=== PATIENT | female | born 2000 | race American Indian/Alaskan Native ===

== ENCOUNTER 2020-06-15 20:05 | Inpatient (IN) | payer MEDICAID ==
[2020-06-15] MEDS ORDERED: miSOPROStol 200 MCG TAB PR PRN (20:18)
[2020-06-15] MEDS ORDERED: CARBOPROST TROMETHAMINE 250 MCG/1 ML INJ IM PRN (20:18)
[2020-06-15] MEDS ORDERED: TERBUTALINE 1 MG/1 ML INJ SUB-Q PRN (20:18)
[2020-06-15] MEDS ORDERED: ePHEDrine SULFATE 50 MG/1 ML INJ IV PRN (20:18)
[2020-06-15] MEDS ORDERED: MINERAL OIL 30 ML ORAL LIQD PO PRN (20:18)
[2020-06-15] MEDS ORDERED: LIDOCAINE (2%) 20 MG/1 ML VIAL 20 ML MDV INFILTRATI ONE (20:18)
[2020-06-15] MEDS ORDERED: ONDANSETRON 4 MG/2 ML INJ IV PRN (20:18)
[2020-06-15] MEDS ORDERED: ACETAMINOPHEN 325 MG TAB PO PRN (20:18)
[2020-06-15] MEDS ORDERED: LOPERAMIDE 2 MG CAP PO PRN (20:18)
--- NOTE | 2020-06-15 20:19 | History and Physical Report ---
History of Present Illness Date of examination: 06/15/20 Date of admission: 06/15/20 20:05 Chief complaint: IOL for post term History of present illness: EDC Calculations LMP: 06/06/2020 EDC Confirmation: 06/06/2020 Gestational Age: 7 2/7 weeks Past History : 1 Term Births: 0 Premature Births: 0 Living Children: 0 Para: 0 Mult. Births: 0 Prev : 0 Aborta: 0 Elect. Ab: 0 Spont. Ab: 0 Ectopics: 0 Past Medical History: Allergies-seasonal Past Surgical History: Negative Past Surgical History Family History Summary: Other Family Member - Has No Family History of Ovarvian Cancer - Entered On: 10/21/2019 Other Family Member - Has No Family History of Colon Cancer - Entered On: 10/21/2019 Other Family Member - Has No Family History of Breast Cancer - Entered On: 10/21/2019 Social History: Marital Status: Single Children: 0 Occupation: [employer] Risk Factors: Smoked Tobacco Use: Never smoker Drug use: yes Substance: marijuana HIV high-risk behavior: low risk Alcohol use: no Dietary Counseling: pn yes Past Medical History Surgery (Non-supervisor taping): Negative Past Surgical History Abnormal PAP: negative Uterine Anomaly: negative Social Hx: Marital Status: Single Children: 0 Occupation: [employer] Infection History Hx of STD: none HIV Risk Eval: low risk Hepatitis B Risk Eval: low risk Personal hx. of genital herpes: no Genetic History Congenital Heart Defect: Mom: no Dad: no Reyna Disease: Mom: no Dad: no Thalassemia Mom: no Dad: no Neural Tube Defect Mom: no Dad: no Down's Syndrome Mom: no Dad: no Gareth-Sachs Mom: no Dad: no Sickle Cell Disease/Trait Mom: no Dad: no Hemophilia Mom: no Dad: no Muscular Dystrophy Mom: no Dad: no Cystic Fibrosis Mom: no Dad: no Turner Chorea Mom: no Dad: no Mental Retardation Mom: no Dad: no Fragile X Mom: no Dad: no Other Genetic/Chromosomal Disorder Mom: no Dad: no Child w/other defect Mom: no Dad: no Enviromental Exposures Xray Exposure: no Medication, drug, or alcohol use since LMP: no Chemical/Other Exposure: no Exposure to Cat Liter: no Active Medications (reviewed today): None Current Allergies (reviewed today): No known allergies Past History - Obstetrical History Expected Date of Delivery: 06/06/20 Actual Gestation: 41 Week(s) 2 Day(s) Review of Systems All systems: negative - Physical Exam Breasts: Positive: deferred Cardiovascular: Regular rate Lungs: Positive: Normal air movement Abdomen: Positive: normal appearance, soft. Negative: tenderness Genitourinary (Female): Positive: normal external genitalia, normal perenium Vulva: both: normal Uterus: Positive: enlarged. Negative: tender Extremities: Positive: normal. Negative: tenderness, edema - Obstetrical FHR: category 1 Uterine Contraction Monitor Mode: External Cervical Dilatation: 2 Cervical Effacement Percentage: 50 station: -1 Uterine Contraction Pattern: Absent Results All other labs normal. Assessment and Plan - Patient Problems (1) 41 weeks gestation of Current Visit: Yes Status: Acute (2) Post term Current Visit: Yes Status: Acute Plan to address problem: Will start Pitocin induction. Plan of care explained, questions encouraged and answered, she voiced understanding and agrees with pitocin IOL (3) Carrier of group B Streptococcus Current Visit: Yes Status: Acute
[2020-06-15] MEDS ORDERED: LACTATED RINGERS 1,000 ML ONE (20:36)
[2020-06-15] MEDS ORDERED: OXYTOCIN DRIP 30,000 MILLIUNITS/500 ML BAG IV ONE (20:37)
[2020-06-15] MEDS ORDERED: OXYTOCIN 10 UNIT/1 ML INJ IM PRN (20:39)
[2020-06-15] MEDS ORDERED: OXYTOCIN DRIP 30 UNITS/500 ML BAG IV SCH ×2 (21:00)
[2020-06-15] MEDS ORDERED: AMPICILLIN/NS 2 GM/100 ML 2 GM/100 ML BAG IV ONE (22:00)
[2020-06-15 22:04] LABS: Hematocrit 35.5 % (30.3-42.9); Hemoglobin 11.9 gm/dl (10.1-14.3); Mean Corpuscular HGB Conc 34 % (30-34); Mean Corpuscular Volume 78 fl (79-97); Platelet Count 143 K/mm3 (140-440); Red Blood Count 4.53 M/mm3 (3.65-5.03); Red Cell Distribution Width 15.6 % (13.2-15.2)
[2020-06-15 22:23] LABS: Alanine Aminotransferase 17 units/L (7-56)
[2020-06-16 00:24] LABS: Bilirubin,Urine NEG (Negative); Blood,Urine NEG (Negative); Color,Urine Yellow (Yellow); Mucus,Urine FEW /HPF; Protein,Urine <15 mg/dL mg/dL (Negative); Urobilinogen,Urine < 2.0 mg/dL (<2.0)
[2020-06-16] MEDS: AMPICILLIN/NS 1 GM/50 ML 1 GM/50 ML BAG IV SCH ×4 (02:58→17:33)
--- NOTE | 2020-06-16 06:11 | Progress Note ---
Assessment and Plan Pt resting No c/o voiced VSS Low dose pit overnight SVE 3,60,-1 Will have AM care and diet and then resume pitocin per protocol. Pt desires to deliver w/o epidural. Will explore comfort measures. All concerns addressed. - Patient Problems (1) Carrier of group B Streptococcus Onset Date: ~06/16/20 Current Visit: Yes Status: Acute Plan to address problem: Continue Ampicillin per protocol Subjective - Subjective Date of service: 06/16/20 (sleeping No voiced c/o) Principal diagnosis: IUP @ 41w.2d IOL Patient reports: movement normal Objective - Vital Signs Vital Signs: Vital Signs - 12hr 06/15/20 06/15/20 06/15/20 20:29 21:12 21:23 Temperature 99.5 F Pulse Rate 103 H 103 H 103 H Respiratory 18 Rate Blood Pressure 140/85 131/86 Blood Pressure 140/85 [Right] 06/15/20 06/15/20 06/15/20 21:55 22:23 22:53 Temperature Pulse Rate 82 90 84 Respiratory Rate Blood Pressure 117/60 123/85 118/72 Blood Pressure [Right] 06/15/20 06/16/20 06/16/20 23:24 00:24 00:54 Temperature Pulse Rate 88 82 88 Respiratory Rate Blood Pressure 122/74 130/84 120/85 Blood Pressure [Right] 06/16/20 06/16/20 06/16/20 02:56 03:15 04:55 Temperature 98.4 F Pulse Rate 87 95 H Respiratory Rate Blood Pressure 134/77 119/81 Blood Pressure [Right] - Exam Breasts: deferred Cardiovascular: Regular rate Lungs: Normal air movement Abdomen: Present: normal appearance, soft. Absent: distention, tenderness Uterus: Present: normal FHR: auscultation normal, category 1 Uterine Contraction Monitor Mode: External Cervical Dilatation: 3 (posterior) Cervical Effacement Percentage: 60 station: -1 Uterine Contraction Pattern: Regular Uterine Tone Measurement Phase: Resting Uterine Contraction Intensity: Mild Extremities: normal Deep Tendon Reflex Grade: Normal +2 - Labs Labs: Abnormal Labs 06/15/20 06/15/20 21:40 21:40 MCV 78 L MCH 26 L RDW 15.6 H Creatinine 0.5 L Lactate Dehydrogenase 215 H Laboratory Results - last 24 hr 06/15/20 06/15/20 06/15/20 21:40 21:40 21:40 WBC 5.8 RBC 4.53 Hgb 11.9 Hct 35.5 MCV 78 L MCH 26 L MCHC 34 RDW 15.6 H Plt Count 143 Creatinine 0.5 L Estimated GFR > 60 Uric Acid 5.0 AST 23 ALT 17 Lactate Dehydrogenase 215 H Urine Color Urine Turbidity Urine pH Ur Specific [place] Urine Protein Urine Glucose (UA) Urine Ketones Urine Blood Urine Nitrite Urine Bilirubin Urine Urobilinogen Ur Leukocyte Esterase Urine WBC (Auto) Urine RBC (Auto) U Epithel Cells (Auto) Urine Mucus Syphilis IgG Antibody Blood Type O POSITIVE Antibody Screen Negative 06/15/20 06/15/20 21:40 23:08 WBC RBC Hgb Hct MCV MCH MCHC RDW Plt Count Creatinine Estimated GFR Uric Acid AST ALT Lactate Dehydrogenase Urine Color Yellow Urine Turbidity Clear Urine pH 6.0 Ur Specific [place] 1.028 Urine Protein <15 mg/dl Urine Glucose (UA) Neg Urine Ketones Neg Urine Blood Neg Urine Nitrite Neg Urine Bilirubin Neg Urine Urobilinogen < 2.0 Ur Leukocyte Esterase Neg Urine WBC (Auto) 1.0 Urine RBC (Auto) 1.0 U Epithel Cells (Auto) 1.0 Urine Mucus Few Syphilis IgG Antibody Nonreactive Blood Type Antibody Screen
[2020-06-16] MEDS: fentaNYL 100 MCG/2 ML INJ IV PRN ×3 (07:22→23:21)
[2020-06-16] MEDS ORDERED: OXYTOCIN DRIP 30 UNITS/500 ML BAG IV SCH (08:00)
[2020-06-16] MEDS: LACTATED RINGERS 1,000 ML IV SCH ×2 (14:35→22:48)
--- NOTE | 2020-06-16 15:57 | Progress Note ---
Assessment and Plan Pt sleeping tolerating ctx. [place] not recording ctx. Pit @ 22mu ISE/IUPC placed minimal fluid. Will replace pit bag and restart @ 10mu Pt off ered IV meds and/or epidural - Patient Problems (1) Carrier of group B Streptococcus Onset Date: ~06/16/20 Current Visit: Yes Status: Acute Subjective - Subjective Date of service: 06/16/20 (pit on 22mu unable to trace) Principal diagnosis: IUP @ 41w.2d IOL Patient reports: movement normal Objective - Vital Signs Vital Signs: Vital Signs - 12hr 06/16/20 06/16/20 06/16/20 04:55 06:55 07:45 Temperature 98.4 F Pulse Rate 95 H 71 Respiratory 16 Rate Blood Pressure 119/81 115/69 06/16/20 06/16/20 06/16/20 08:19 09:19 10:19 Temperature Pulse Rate 75 71 71 Respiratory Rate Blood Pressure 102/58 109/61 111/58 06/16/20 06/16/20 06/16/20 11:19 12:19 13:19 Temperature Pulse Rate 90 71 85 Respiratory Rate Blood Pressure 129/72 118/70 133/91 06/16/20 06/16/20 06/16/20 13:20 14:19 15:00 Temperature 98.5 F Pulse Rate 88 81 Respiratory Rate Blood Pressure 123/64 129/71 06/16/20 15:19 Temperature Pulse Rate 82 Respiratory Rate Blood Pressure 107/64 - Exam Breasts: deferred Cardiovascular: Regular rate Lungs: Normal air movement Abdomen: Present: normal appearance, soft. Absent: distention, tenderness Uterus: Present: normal FHR: auscultation normal, category 1 Uterine Contraction Monitor Mode: Internal Cervical Dilatation: 3 (minimal fluid) Cervical Effacement Percentage: 80 (ISE/IUPC placed) station: -1 Uterine Contraction Pattern: Regular Uterine Contraction Intensity: Mild Extremities: normal Deep Tendon Reflex Grade: Normal +2 - Labs Labs: Abnormal Labs 06/15/20 06/15/20 21:40 21:40 MCV 78 L MCH 26 L RDW 15.6 H Creatinine 0.5 L Lactate Dehydrogenase 215 H Laboratory Results - last 24 hr 06/15/20 06/15/20 06/15/20 21:40 21:40 21:40 WBC 5.8 RBC 4.53 Hgb 11.9 Hct 35.5 MCV 78 L MCH 26 L MCHC 34 RDW 15.6 H Plt Count 143 Creatinine 0.5 L Estimated GFR > 60 Uric Acid 5.0 AST 23 ALT 17 Lactate Dehydrogenase 215 H Urine Color Urine Turbidity Urine pH Ur Specific [place] Urine Protein Urine Glucose (UA) Urine Ketones Urine Blood Urine Nitrite Urine Bilirubin Urine Urobilinogen Ur Leukocyte Esterase Urine WBC (Auto) Urine RBC (Auto) U Epithel Cells (Auto) Urine Mucus Syphilis IgG Antibody Blood Type O POSITIVE Antibody Screen Negative 06/15/20 06/15/20 21:40 23:08 WBC RBC Hgb Hct MCV MCH MCHC RDW Plt Count Creatinine Estimated GFR Uric Acid AST ALT Lactate Dehydrogenase Urine Color Yellow Urine Turbidity Clear Urine pH 6.0 Ur Specific [place] 1.028 Urine Protein <15 mg/dl Urine Glucose (UA) Neg Urine Ketones Neg Urine Blood Neg Urine Nitrite Neg Urine Bilirubin Neg Urine Urobilinogen < 2.0 Ur Leukocyte Esterase Neg Urine WBC (Auto) 1.0 Urine RBC (Auto) 1.0 U Epithel Cells (Auto) 1.0 Urine Mucus Few Syphilis IgG Antibody Nonreactive Blood Type Antibody Screen
[2020-06-16] MEDS ORDERED: NALOXONE 2 MG/2 ML INJ IV PRN (16:30)
[2020-06-16] MEDS ORDERED: ONDANSETRON 4 MG/2 ML INJ IV PRN (16:30)
[2020-06-16] MEDS ORDERED: NalbUPHINE 10 MG/1 ML INJ IV PRN (16:30)
[2020-06-16] MEDS ORDERED: diphenhydrAMINE 50 MG/ML VIAL IV PRN (16:30)
[2020-06-16] MEDS ORDERED: fentaNYL-BUPIV 2 MCG/ML-0.125% 200 MCG/100 ML BAG EPIDURAL SCH (17:00)
--- NOTE | 2020-06-16 17:01 | Anesthesia Consultation ---
Anesthesia Consult and Med Hx Date of service: 06/16/20 - Airway Anesthetic Teeth Evaluation: Good ROM Head & Neck: Adequate Mental/Hyoid Distance: Adequate Mallampati Class: Class II Intubation Access Assessment: Probably Good - Pulmonary Exam CTA: Yes - Cardiac Exam Cardiac Exam: RRR - Pre-Operative Health Status ASA Pre-Surgery Classification: ASA2 Proposed Anesthetic Plan: Epidural - Pulmonary Hx Smoking: No Hx Asthma: No COPD: No Hx Pneumonia: No Hx Sleep Apnea: No - Cardiovascular System Hx Hypertension: No Hx Heart Attack/AMI: No Hx Angina: No - Central Nervous System Hx Seizures: No - Gastrointestinal Hx Gastroesophageal Reflux Disease: No - Endocrine Hx Renal Disease: No Hx End Stage Renal Disease: No Hx Insulin Dependent Diabetes: No Hx Non-Insulin Dependent Diabetes: No Hx Hypothyroidism: No Hx Hyperthyroidism: No - Hematic Hx Anemia: No Hx Sickle Cell Disease: No - Other Systems Hx Alcohol Use: No
--- NOTE | 2020-06-16 17:02 | Progress Note ---
Labor Epidural - Labor Epidural Start Time: 16:20 Stop Time: 16:35 Performed by:: TRACY ALONSO (Mey GARCIA) Procedure: Patient is requesting a laboring epidural for laboring pain. Patient IDed, H&P reviewed, all questions and concerns were answered, and consent was signed. Timeout was performed at bedside. Patient in sitting position. Sterile prep and drape was performed. 3ml of 1% lidocaine skin wheal at L[3]- L [4]. 18- gauge Touhy epidural needle was advanced to loss of resistance with air technique. Negative CSF negative blood. Epidural catheter advanced to [12] centimeters. [-] Aspiration [-] test dose. Sterile dressing applied. Patient tolerated procedure.
--- NOTE | 2020-06-16 22:38 | Event Note ---
Date: 06/16/20 (SVE 10,100,0) pt pushing minimally Epidural decreased to 6. Pit remains @ 10mu Will continue pushing utilizing different pushing positions. Vertex descends with most pushes.
[2020-06-16] MEDS ORDERED: LIDOCAINE (2%) 20 MG/1 ML VIAL 20 ML MDV INFILTRATI ONE (23:11)
[2020-06-17] MEDS ORDERED: PROMETHAZINE 25 MG TAB PO PRN (00:19)
[2020-06-17] MEDS ORDERED: MAGNESIUM HYDROXIDE (MOM) ORAL LIQD UDC PO PRN (00:19)
[2020-06-17] MEDS ORDERED: diphenhydrAMINE 25 MG CAP PO PRN (00:19)
[2020-06-17] MEDS ORDERED: LANOLIN/ZINC/DIMETHICONE (LANSINOH) 7 GM TP PRN (00:19)
[2020-06-17] MEDS ORDERED: HYDROcodone/ACETAMINOPHEN 5-325 MG TAB PO PRN (00:29)
--- NOTE | 2020-06-17 01:21 | Procedure Note ---
OB Delivery Note - Delivery Date of Delivery: 06/17/20 Shells Inspector: SENIA NOGUEIRA Estimated blood loss: 500cc - Vaginal Delivery presentation: vertex Delivery position: OP Intrapartum events: other(please specify) (4th degree) Delivery induction: oxytocin Delivery augmentation: pitocin Delivery monitor: internal FHT, internal uterine Route of delivery: Delivery cord: 3 umbilical vessels Episiotomy: midline Delivery laceration: 4th degree Delivery repair: vicryl Anesthesia: local, epidural Delivery comments: DULCE present Count correct X 2 live born male, OP, over 2nd degree episiotomy Baby to mom's abdomen skin to skin Cord blood obtained Placenta and membrane del complete and intact, 3 vessel cord. $th degree laceration noted 3-0 vicryl for repair of rectal mucosa 2 layers Remainder of repair with 2-0 vicryl in usual fashion.Rectal exam communication noted from rectum to vagina. 8/9, EBL 500 Cytotec 800mcg [place] placed. Wgt 7-6 - A at 1 minute: 8 at 5 minutes: 9 Infant Gender: Male (Alfredo wgt 7-9)
[2020-06-17] MEDS: IBUPROFEN 800 MG TAB PO SCH ×3 (06:31→23:13)
--- NOTE | 2020-06-17 08:11 | Progress Note ---
Assessment and Plan Pt sitting in bed quietly. No visible s/s of distress. Reports perineal pain from 4th degree laceration during delivery (2nd degree episiotomy). Ice pack in place and taking ordered pain medication. NT at bedside preparing to assess VS. VSSAF. HR in 100's overnight. HR at 90 this AM. Post-delivery H/H scheduled to be collected at 1219. Ambulating and voiding without difficulty. Fundus firm at umbilicus. Light vaginal bleeding seen. Mild vaginal swelling present. Pt confirms BM this morning. Attempting to BF with formula supplementation. P: Continue PP pathway. Anticipate D/C home tomorrow if remains stable. - Patient Problems (1) Normal spontaneous vaginal delivery Current Visit: Yes Status: Acute Subjective - Subjective Date of service: 06/17/20 Principal diagnosis: <12 hrs s/p at 41 weeks Patient reports: appetite normal, voiding normally, pain well controlled, ambulating normally : doing well Objective - Vital Signs Latest vital signs: Vital Signs Temp Pulse Resp BP BP Pulse Ox 06/17/20 06:31 20 06/17/20 01:40 98.9 F 106 H 20 126/79 98 06/17/20 00:55 102 H 126/76 06/17/20 00:40 121 H 135/77 06/17/20 00:25 118 H 136/83 06/16/20 23:32 118 H 132/64 06/16/20 22:48 98.4 F 06/16/20 22:32 131 H 141/103 06/16/20 21:32 93 H 139/76 06/16/20 19:32 79 128/75 06/16/20 19:00 99.5 F 06/16/20 18:59 95 H 144/88 06/16/20 18:33 100 H 144/95 06/16/20 17:41 98.5 F 06/16/20 17:31 77 119/60 06/16/20 17:29 71 118/61 06/16/20 17:27 80 123/63 06/16/20 17:25 82 123/66 06/16/20 17:24 81 127/66 06/16/20 17:21 77 118/58 06/16/20 17:19 74 117/55 06/16/20 17:17 75 111/55 06/16/20 17:15 71 116/56 06/16/20 17:13 73 110/56 06/16/20 17:11 67 112/58 06/16/20 17:09 71 110/57 06/16/20 17:07 77 100/53 06/16/20 17:05 74 110/58 06/16/20 17:03 77 110/56 06/16/20 17:01 70 119/63 06/16/20 17:00 70 122/66 06/16/20 16:57 65 106/57 06/16/20 16:55 74 100/50 06/16/20 16:54 75 109/56 06/16/20 16:51 74 111/64 06/16/20 16:49 74 104/62 06/16/20 16:47 71 117/59 06/16/20 16:46 77 126/73 06/16/20 16:41 81 107/56 06/16/20 16:39 72 103/55 06/16/20 16:37 89 109/56 06/16/20 16:36 86 108/59 06/16/20 16:33 88 113/65 06/16/20 16:31 113 H 116/70 06/16/20 16:30 81 116/58 06/16/20 16:27 89 127/85 06/16/20 16:23 93 H 110/62 06/16/20 16:21 90 119/61 06/16/20 16:20 106 H 127/64 06/16/20 15:19 82 107/64 06/16/20 15:00 98.5 F 06/16/20 14:19 81 129/71 06/16/20 13:20 88 123/64 06/16/20 13:19 85 133/91 06/16/20 12:19 71 118/70 06/16/20 11:19 90 129/72 06/16/20 10:19 71 111/58 06/16/20 09:19 71 109/61 06/16/20 08:19 75 102/58 Intake and Output 06/16/20 06/17/20 06/17/20 22:59 06:59 14:59 Intake Total 1031.2 Output Total 350 Balance 681.2 Intake: IV 1031.2 Lactated Ringers 1,000 ml 1000 @ 125 mls/hr IV DIRECT [facility] Rx#:[id number] PITOCin/NS 30 UNIT/500ML 31.2 30 units In 500 ml @ 4 mls/hr IV Q30MIN [facility] Rx#: [id number] Output: Urine 350 Indwelling Catheter 350 Other: Total, Output Amount 350 - Exam Breasts: Present: deferred Cardiovascular: Present: Regular rate Lungs: Present: Normal air movement Abdomen: Present: normal appearance, soft, normal bowel sounds Uterus: Present: normal, firm, fundal height at umbilicus Extremities: Present: normal Deep Tendon Reflex Grade: Normal +2
--- NOTE | 2020-06-17 10:17 | Post Anesthesia Evaluation ---
- Post Anesthesia Evaluation Patient Participated: Yes Airway Patent: Yes Stable Respiratory Function: Yes Nausea/Vomiting: No Temp > 96.8F: Yes Pain Manageable: Yes Adequeate Hydration: Yes Anesthesia Complications: No Block Receding Appropriately: Yes Patient on Ventilator: No
[2020-06-17 13:01] LABS: Hematocrit 32.2 % (30.3-42.9); Hemoglobin 10.6 gm/dl (10.1-14.3)
[2020-06-17] MEDS: DOCUSATE SODIUM 100 MG CAP PO SCH ×2 (14:06→23:14)
[2020-06-17] MEDS: WITCH HAZEL/ GLYCERIN PAD TP PRN (14:07)
[2020-06-18] MEDS ORDERED: MEASLES, MUMPS & RUBELLA 12,500 UNIT/0.5 ML VACCINE SUB-Q ONE (00:29)
[2020-06-18] MEDS ORDERED: DIPHtheria,PERTUSSIS(ACELL),TETANUS VACCINE/PF 0.5 ML VIAL IM ONE (06:00)
[2020-06-18] MEDS: IBUPROFEN 800 MG TAB PO SCH (07:00)
--- NOTE | 2020-06-18 08:10 | Discharge Summary ---
Providers - Providers Date of Admission: 06/15/20 20:05 Date of discharge: 06/18/20 (desires d/c home) Attending physician: GINNY KAT Primary care physician: GINNY KAT Hospitalization Reason for admission: Induction of labor Condition: Good Pertinent studies: post delivery H&H 10.6/32.2 Procedures: w/ 4th degree laceration Hospital course: and course complicated by 4th degree lac Disposition: DC- TO HOME OR SELFCARE - Discharge Diagnoses (1) Fourth-degree perineal laceration during delivery Status: Acute (2) Normal spontaneous vaginal delivery Status: Acute Core Measure Documentation - Palliative Care Palliative Care/ Comfort Measures: Not Applicable - Core Measures Any of the following diagnoses?: none Exam - Constitutional Vitals: Temp Pulse Resp BP Pulse Ox 98.5 F 90 16 123/70 97 06/18/20 00:44 06/18/20 00:44 06/18/20 00:44 06/18/20 00:44 06/18/20 00:44 General appearance: Present: no acute distress, well-nourished - EENT Eyes: Present: PERRL ENT: hearing intact, clear oral mucosa - Neck Neck: Present: supple, normal ROM - Respiratory Respiratory effort: normal Respiratory: bilateral: CTA - Cardiovascular Rhythm: regular Heart Sounds: Absent: rub, click - Extremities Extremities: No edema - Abdominal General gastrointestinal: Present: soft, non-tender, non-distended, normal bowel sounds Female genitourinary: Present: normal - Integumentary Integumentary: Present: clear, warm, dry - Musculoskeletal Musculoskeletal: gait normal, strength equal bilaterally - Psychiatric Psychiatric: appropriate mood/affect, intact judgment & insight - Neurologic Neurologic: CNII-XII intact, moves all extremities - Additional findings Additional findings: VSSAF, fundus firm, lochia scant, perineum healing well. Plan Activity: advance as tolerated Diet: regular Wound: keep clean and dry Follow up with: GINNY KAT MD [Primary Care Provider] - 7 Days (Congratulations! Please call [phone] to schedule your son's circumcision and your laceration check in 1 week. Bring EMLA cream to your son's visit and wait for futher instructions. Call for any questions or concerns. )
[2020-06-18] MEDS: WITCH HAZEL/ GLYCERIN PAD TP PRN (10:03)
[2020-06-18] MEDS: DOCUSATE SODIUM 100 MG CAP PO SCH (10:03)
[2020-06-18 11:10] VITALS: BP 126/81
== END 2020-06-18 11:58 | disposition home or self-care (01) | DRG 775 ==
LOC: LD 20:05 → OB 06-17 01:33
PROVIDERS: ADMIT Obstetrics & Gynecology; ATTEND Obstetrics & Gynecology
PROC: 10H07YZ Insertion of Other Device into Products of Conception, Via Natural or Artificial Opening (ICD-10-PCS; 2020-06-16)
PROC: 3E0R3BZ Introduction of Anesthetic Agent into Spinal Canal, Percutaneous Approach (ICD-10-PCS; 2020-06-16)
PROC: 00HU33Z Insertion of Infusion Device into Spinal Canal, Percutaneous Approach (ICD-10-PCS; 2020-06-16)
PROC: 10E0XZZ Delivery of Products of Conception, External Approach (ICD-10-PCS; principal; 2020-06-17)
PROC: 0DQP0ZZ Repair Rectum, Open Approach (ICD-10-PCS; 2020-06-17)
PROC: 3E033VJ Introduction of Other Hormone into Peripheral Vein, Percutaneous Approach (ICD-10-PCS; 2020-06-17)
PROC: 0W8NXZZ Division of Female Perineum, External Approach (ICD-10-PCS; 2020-06-17)
PROC: 3E0234Z Introduction of Serum, Toxoid and Vaccine into Muscle, Percutaneous Approach (ICD-10-PCS; 2020-06-18)
DX: O48.0 Post-term pregnancy (principal); Z37.0 Single live birth; Z3A.41 41 weeks gestation of pregnancy; O99.824 Streptococcus B carrier state complicating childbirth; O70.3 Fourth degree perineal laceration during delivery; Z20.828 Contact with and (suspected) exposure to other viral communicable diseases; Z23 Encounter for immunization
CPT/HCPCS: 36415; 81001; 82565; 83615; 84450; 84460; 84550; 85014; 85018; 85027; 86592; 86850; 86900; 86901; G0378; J0290; J2590; J3010; J7120; U0003